=== PATIENT | male | born 1940 | race Caucasian/White ===

== ENCOUNTER 2017-03-06 11:15 | Outpatient (CLI) | payer MEDICARE, OTHER | END 2017-03-06 11:16 | disposition home or self-care (01) | LOC: ULT 11:15 | PROVIDERS: ATTEND Internal Medicine | DX: I26.99 Other pulmonary embolism without acute cor pulmonale (principal); I36.1 Nonrheumatic tricuspid (valve) insufficiency; I34.0 Nonrheumatic mitral (valve) insufficiency | CPT/HCPCS: 93306 ==

== ENCOUNTER 2017-03-22 09:42 | Outpatient (CLI) | payer MEDICARE, OTHER ==
[2017-03-22 11:58] LABS: #Basophils 0.1 thou/uL (0.0-0.2); #Eosinphils 0.2 thou/uL (0.0-0.7); #Lymphocytes 1.3 thou/uL (1.20-3.40); #Monocytes 0.7 thou/uL (0.11-0.59); #Neutrophils 5.9 thou/uL (1.40-6.50); %Basophils 0.8 % (0.0-1.0); %Lymphocytes 16.4 % (21.0-51.0); %Monocytes 8.2 % (0.0-10.0); Hematocrit 47.4 % (42.0-52.0); Mean Platelet Volume 8.3 fL (7.4-10.4); White Blood Cell (WBC) Count 8.1 thou/uL (4.8-10.8)
[2017-03-22 12:15] LABS: Hemoglobin A1c 5.2 % (4.0-6.0)
[2017-03-22 12:24] LABS: Anion Gap 10 mmol/L (10-20); BUN (Urea Nitrogen) 14 mg/dL (8.4-25.7); Calc. Creatinine Clearance 0 mL/min (70-130); Calcium 9.3 mg/dL (7.8-10.44); Carbon Dioxide 27 mmol/L (23-31); Chloride 107 mmol/L (98-107); Estimated GFR-MDRD 71
== END 2017-03-22 09:43 | disposition home or self-care (01) ==
LOC: LABBT 09:42
PROVIDERS: ATTEND Surgery
DX: Z01.812 Encounter for preprocedural laboratory examination (principal); K63.5 Polyp of colon
CPT/HCPCS: 80048; 83036; 85025

== ENCOUNTER 2017-03-22 10:30 | Inpatient (IN) | payer MEDICARE, OTHER ==
[2017-03-28] MEDS ORDERED: Fentanyl 100 MCG/2 ML VIAL ONE ×4 (08:43→14:22)
[2017-03-28] MEDS ORDERED: Midazolam HCl 2 mg/2 ml Vial ONE (08:43)
[2017-03-28] MEDS ORDERED: Dexamethasone 4 mg/ml Vial ONE (08:44)
[2017-03-28] MEDS ORDERED: cefOXitin Sodium 2 GM, Syringe 1 ML in Sterile Water 10 ML SLOW IVP SCH (08:45)
[2017-03-28] MEDS ORDERED: ceFOXitin 1 GM VIAL ONE (11:53)
[2017-03-28] MEDS ORDERED: Promethazine HCl 25 MG/ML VIAL IM PRN ×2 (14:12→15:58)
[2017-03-28] MEDS ORDERED: Ondansetron HCl/PF 4 MG/2 ML Vial IVP PRN ×2 (14:12→15:58)
[2017-03-28] MEDS ORDERED: Meperidine HCl/PF 25 MG/ML VIAL SLOW IVP PRN (14:12)
[2017-03-28] MEDS ORDERED: Promethazine HCl 25 MG/ML VIAL SLOW IVP PRN (14:12)
[2017-03-28] MEDS ORDERED: Ketorolac Tromethamine 30 MG/ML VIAL IVP PRN (14:12)
[2017-03-28] MEDS ORDERED: Fentanyl 100 MCG/2 ML VIAL SLOW IVP PRN (15:58)
[2017-03-28] MEDS ORDERED: hydrALAZINE 20 MG/ML VIAL SLOW IVP PRN (15:58)
[2017-03-28] MEDS ORDERED: Bupivacaine HCl 0.5%/Epinephrine 1:200,000/PF 30 ml Vial ONE (16:20)
[2017-03-28] MEDS ORDERED: Bupivacaine PF 0.5% 30 ML VIAL ONE (16:20)
[2017-03-28] MEDS: Sodium Chloride 0.9% 1,000 ML IV SCH ×2 (16:32→21:36)
[2017-03-28] MEDS: Fentanyl 100 MCG/2 ML VIAL SLOW IVP PRN (16:34)
[2017-03-28] MEDS ORDERED: Propofol 200 MG/20 ML VIAL ONE (17:10)
[2017-03-28] MEDS ORDERED: Succinylcholine Chloride 20 MG/ML 10 ml SYRINGE FS ONE (17:10)
[2017-03-28] MEDS ORDERED: ePHEDrine/0.9% NaCl/PF SYRINGE 50 mg/10 ml ONE (17:10)
[2017-03-28] MEDS ORDERED: Ondansetron HCl/PF 4 MG/2 ML Vial ONE (17:10)
[2017-03-28] MEDS ORDERED: Metoclopramide HCl 10 MG/2 ML VIAL ONE (17:10)
[2017-03-28] MEDS ORDERED: Glycopyrrolate 0.2 MG/ML 5 ML SYRINGE ONE (17:10)
[2017-03-28] MEDS ORDERED: Lidocaine 1% PF 5 ML VIAL ONE (17:10)
[2017-03-28] MEDS ORDERED: diphenhydrAMINE 50 MG/ML VIAL ONE (17:10)
[2017-03-28] MEDS: Acetaminophen 1,000 MG in Premix Bag 1 BAG IVPB SCH (17:40)
[2017-03-28] MEDS: cefOXitin Sodium 2 GM, Syringe 1 ML in Sterile Water 10 ML SLOW IVP SCH (18:31)
[2017-03-28] MEDS: Famotidine/PF 20 mg/2ml Vial SLOW IVP SCH (21:37)
[2017-03-28] MEDS: Enoxaparin Sodium 40 MG/0.4 ML SYRINGE SC SCH (21:37)
[2017-03-28] MEDS: Famotidine 20 MG TAB PO SCH (21:37)
--- NOTE | 2017-03-28 23:48 | OP ---
DATE OF PROCEDURE: 03/28/2017 PREOPERATIVE DIAGNOSES: 1. Sigmoid mass. 2. Cecal mass. POSTOPERATIVE DIAGNOSES: 1. Sigmoid mass. 2. Cecal mass. PROCEDURE: 1. Laparoscopic left colectomy with low pelvic anastomosis with diverting loop ileostomy. 2. Laparoscopic mobilization of splenic flexure. 3. Laparoscopic ileocecectomy. SURGEON: Sergei Mendez M.D. ANESTHESIA: General. ESTIMATED BLOOD LOSS: 50 mL. COMPLICATIONS: None. FINDINGS: Both colon specimens opened to reveal the large polyps to be in the specimen. INDICATION: The patient is a 76-year-old male who presents with large unresectable by colonoscopy po lyps in the sigmoid and cecum, both greater than [address] scan showed no obvious evidence of malignancy. He underwent cardiac clearance. He is on Xarelto for history of PE. He underwent [facility] anical and antibiotic bowel prep. TECHNIQUE: The patient underwent tap blocks in preop holding. After he was taken to the operating r oom and laid supine on the operating room table. After general anesthetic was obtained, a Sultana was placed. He was placed in lithotomy position. His abdomen was shaved, prepped and draped in a steril e fashion. Left subcostal 5-mm Optiview trocar was placed in the usual fashion without injury and hi gh-flow pneumoperitoneum was obtained. Right lower quadrant 12-mm, port supraumbilical 5 mm port, an d suprapubic 5 mm port were placed under direct visualization. A 5 mm port was placed in the left lo wer quadrant as well. The patient was placed in Trendelenburg position. His small bowel was pulled out of the pelvis into the upper abdomen. His sigmoid colon was lifted up. The peritoneum was taken down in the medial to lateral fashion. The peritoneum was incised. The left ureter was found and e xcluded from the dissection. The base of the BISHNU was taken using a white load on the stapling device . Dissection was then taken down into the pelvis and a mesorectal plane to the area of the rectosigm oid junction and just past. The upper rectum was mobilized. All lateral attachments were taken down . Laparoscopic stapler was fired across the upper rectum. This unhooked the colon, down below the c olon, then flipped up, and the splenic flexure mobilization was performed in the usual fashion and th e greater omentum was taken off of the splenic flexure of colon. The cecum was mobilized along the white line of Toldt using the cautery on the medial side that the p eritoneum was incised. The ileocolic artery was taken using LigaSure. Laparoscopic stapler was fire d across the terminal ileum. The left colon was then mobilized using cautery. The duodenum was foun d and excluded from the dissection and left down. Dissection was performed all the way past the hepa tic flexure of colon. A 4 cm incision was made above the umbilicus, midline incision was made in the fascia and the Darian wound retractor was placed. MICHELLE-75 stapler was fired across the proximal zamora sverse colon. The specimen was opened on the back table to reveal the large polyp to be in the cecum . The small bowel and transverse colon were able to be brought together in an antimesenteric fashion and an antimesenteric anastomosis was performed using MICHELLE-75 stapler, the common enterotomy was clos ed using a TA-60. The staple line was oversewn and a crotch stitch was placed using silk suture. Th e anastomosis was placed back down into the abdomen. Next, the left colon was able to be brought up through the same incision. Location was found for placing the anvil proximally, colotomy was made. The 31 EEA anvil was passed proximally, stapler was fired just distal to this. This colon specimen w as opened to reveal the larger and left sigmoid colon polyp to be in the specimen. The sharp pin on the anvil was brought out on the antimesenteric surface of the colon just above the staple line. The anvil and the colon was placed back in the abdomen. The Darian wound retractor was twisted and held up using a Amberly clamp. Insufflation was reobtained. The patient was replaced in Trendelenburg pos ition. The base of the EEA was brought up through the rectum and brought out on the antimesenteric s urface of the rectum anteriorly below. The anvil was connected from above after the sharp pin was br ought out and the stapler was tightened down and fired within the green zone and held for 30 seconds. The stapler was removed and the distal donut was sent as the final distal margin. There was no ble eding in the abdomen. Ellipse of skin was taken out in the right lower quadrant and a muscle splitti ng incision was performed. Ashley was used to grasp the small bowel just proximal to the right colo n anastomosis and brought it out through this incision. GraNee needle was used to close the fascial defect in the right lower quadrant. Pneumoinsufflation was let down. All ports were removed under d irect visualization. Midline fascia was closed using #1 PDS from the top and the bottom and tied in the middle. The subcutaneous tissues were irrigated using Pulsavac a liter of saline. This incision was closed using 3-0 Vicryl, 4-0 Monocryl, and Dermabond. All the other laparoscopic port sites wer e closed using 4-0 Monocryl and Dermabond. The ileostomy was then matured in the typical loop fashio n using 3-0 Vicryl. An ostomy device was placed. The patient was en route to recovery in stable con dition. All instrument counts, needle counts, and lap counts were correct.
[2017-03-29] MEDS: Acetaminophen 1,000 MG in Premix Bag 1 BAG IVPB SCH ×3 (00:18→11:40)
[2017-03-29] MEDS: cefOXitin Sodium 2 GM, Syringe 1 ML in Sterile Water 10 ML SLOW IVP SCH (01:56)
[2017-03-29] MEDS: Fentanyl 100 MCG/2 ML VIAL SLOW IVP PRN (01:58)
[2017-03-29 05:42] LABS: #Lymphocytes 0.8 thou/uL (1.20-3.40); #Monocytes 1.2 thou/uL (0.11-0.59); #Neutrophils 8.9 thou/uL (1.40-6.50); %Eosinophils 0.1 % (0.0-10.0); %Lymphocytes 7.4 % (21.0-51.0); %Monocytes 10.7 % (0.0-10.0); Hematocrit 40.9 % (42.0-52.0); Mean Platelet Volume 8.4 fL (7.4-10.4); Red Blood Cell (RBC) Count 4.57 mill/uL (4.70-6.10); White Blood Cell (WBC) Count 10.9 thou/uL (4.8-10.8)
[2017-03-29 06:09] LABS: Anion Gap 11 mmol/L (10-20); BUN (Urea Nitrogen) 11 mg/dL (8.4-25.7); Calc. Creatinine Clearance 0 mL/min (70-130); Calcium 8.2 mg/dL (7.8-10.44); Carbon Dioxide 22 mmol/L (23-31); Chloride 108 mmol/L (98-107); Estimated GFR-MDRD 68
[2017-03-29] MEDS ORDERED: Atenolol 25 MG TAB PO SCH (09:00)
[2017-03-29] MEDS: Famotidine/PF 20 mg/2ml Vial SLOW IVP SCH ×2 (09:48→23:26)
[2017-03-29] MEDS: Famotidine 20 MG TAB PO SCH ×2 (10:16→21:13)
[2017-03-29] MEDS ORDERED: HYDROcodone/Acetaminophen 10/325 mg Tablet PO PRN (10:41)
--- NOTE | 2017-03-29 13:31 | PRG ---
DATE OF SERVICE: 03/29/2017 Postop day #1 sigmoid colectomy and cecectomy laparoscopic with diverting ileostomy. The patient fee ls good today. He is tolerating a clear liquid diet. He has been ambulatory. He would like to have his Sultana out. PHYSICAL EXAMINATION: VITAL SIGNS: He is afebrile. His vital signs are stable. ABDOMEN: Soft. He does have bowel sounds. There is already air and stool in his ileostomy bag. ASSESSMENT: Postop day #1, sigmoid colectomy and diverting ileostomy. PLAN: Continue to mobilize. Advance to full liquids. Have ostomy teaching. I sent his prescripti ons over to his outpatient pharmacy which is [facility] in [facility]. Lomotil p.r.n. loose stools in the ba g, Marshall 1-2 every 6h. p.r.n. pain, as well as Zofran 4 mg ODT p.r.n. nausea. Dr. Lance will see h im for me this weekend, likely discharge on Saturday.
[2017-03-29] MEDS: Enoxaparin Sodium 40 MG/0.4 ML SYRINGE SC SCH (21:14)
[2017-03-30 08:35] VITALS: TEMP 98.4
[2017-03-30] MEDS ORDERED: Atenolol 25 MG TAB PO SCH (09:00)
[2017-03-30] MEDS: Famotidine 20 MG TAB PO SCH (09:47)
[2017-03-30] MEDS: Famotidine/PF 20 mg/2ml Vial SLOW IVP SCH (09:47)
[2017-03-30 12:22] VITALS: BP 122/81
== END 2017-03-30 13:00 | disposition home or self-care (01) | DRG 331 ==
LOC: SURG A 03-28 07:38 → SURG B 03-28 15:21
PROVIDERS: ADMIT Surgery; ATTEND Surgery
PROC: 0DBH4ZZ Excision of Cecum, Percutaneous Endoscopic Approach (ICD-10-PCS; principal; 2017-03-28)
PROC: 0D1B4Z4 Bypass Ileum to Cutaneous, Percutaneous Endoscopic Approach (ICD-10-PCS; 2017-03-28)
PROC: 0DBN4ZZ Excision of Sigmoid Colon, Percutaneous Endoscopic Approach (ICD-10-PCS; 2017-03-28)
PROC: 3E0T3BZ Introduction of Anesthetic Agent into Peripheral Nerves and Plexi, Percutaneous Approach (ICD-10-PCS; 2017-03-28)
DX: K63.5 Polyp of colon (principal); I10 Essential (primary) hypertension; Z86.711 Personal history of pulmonary embolism; Z79.01 Long term (current) use of anticoagulants; R25.1 Tremor, unspecified; R41.3 Other amnesia
CPT/HCPCS: 36415; 36416; 80048; 85025; 88307; 88309; A4216; J0131; J0670; J0694; J1100; J1200; J1650; J2001; J2250; J2405; J2704; J2765; J3010; S0020; S0028

== ENCOUNTER 2017-05-16 07:14 | Outpatient (CLI) | payer MEDICARE ==
--- NOTE | 2017-05-16 10:08 | RAD ---
BARIUM ENEMA: Date: 05/16/17 HISTORY: Evaluate anastomosis for stenosis and leak. Patient has a diverting ileostomy. COMPARISON: None. EXPOSURE: 2.1 minutes. 1264 mGy*cm^2. FINDINGS: Initial restaurant hospitality manager abdomen radiograph demonstrates a suture chain in the midline of the pelvis, as well as in the right lower quadrant. Right lower quadrant ileostomy is identified. Patient was administered Gastrografin in a retrograde fashion. There is no significant delay in passa ge of contrast at the level of the distal anastomosis. No leak or extravasation. No significant steno sis. Contrast opacifies the descending colon, transverse colon, and part of the right hemicolon. No o bvious abnormalities. IMPRESSION: No significant stenosis, leak, or extravasation at the distal anastomosis. Results of study discussed with Dr. Mendez on 05/16/17 at 0848 hours. CODE CR. POS: [facility]
== END 2017-05-16 07:15 | disposition home or self-care (01) ==
LOC: RAD 07:14
PROVIDERS: ATTEND Surgery
DX: C18.9 Malignant neoplasm of colon, unspecified (principal)
CPT/HCPCS: 74270

== ENCOUNTER 2017-05-27 09:50 | Outpatient (CLI) | payer MEDICARE, OTHER ==
[2017-05-27 11:30] LABS: Hemoglobin 15.7 g/dL (14.0-18.0); Mean Corpuscular HGB CONC 33.1 g/dL (32.0-36.0); Mean Corpuscular Hemoglobin 29.3 pg (27.0-31.0); Mean Corpuscular Volume 88.3 fl (80.0-94.0); Mean Platelet Volume 7.9 fL (7.4-10.4); Platelet Count 279 thou/uL (130-400); Red Blood Cell (RBC) Count 5.37 mill/uL (4.70-6.10); White Blood Cell (WBC) Count 8.9 thou/uL (4.8-10.8)
[2017-05-27 11:52] LABS: Anion Gap 13 mmol/L (10-20); BUN (Urea Nitrogen) 18 mg/dL (8.4-25.7); Calc. Creatinine Clearance 0 mL/min (70-130); Carbon Dioxide 20 mmol/L (23-31); Chloride 106 mmol/L (98-107); Estimated GFR-MDRD 55; Sodium 135 mmol/L (136-145)
[2017-05-27 11:53] LABS: Calcium 9.5 mg/dL (7.8-10.44); Glucose 85 mg/dL (83-110)
== END 2017-05-27 09:51 | disposition home or self-care (01) ==
LOC: LABBT 09:50
PROVIDERS: ATTEND Surgery
DX: Z01.812 Encounter for preprocedural laboratory examination (principal); C18.9 Malignant neoplasm of colon, unspecified; K94.13 Enterostomy malfunction
CPT/HCPCS: 80048; 85027

== ENCOUNTER 2017-05-27 10:15 | Inpatient (IN) | payer MEDICARE ==
[2017-05-27 10:26] VITALS: BMI 27.8
[2017-05-30] MEDS ORDERED: Fentanyl 100 MCG/2 ML VIAL ONE (06:29)
[2017-05-30] MEDS ORDERED: HYDROmorphone 0.5 MG/0.5 ML SYRINGE ONE (06:29)
[2017-05-30] MEDS ORDERED: cefOXitin 2 GM, Syringe 1 ML in Sterile Water 10 ML SLOW IVP SCH (06:30)
[2017-05-30] MEDS ORDERED: Bupivacaine PF 0.5% 30 ML VIAL ONE (08:20)
--- NOTE | 2017-05-30 09:30 | OP ---
DATE OF PROCEDURE: 05/30/2017 PREOPERATIVE DIAGNOSES: Colon cancer, attention to ileostomy. POSTOPERATIVE DIAGNOSES: Colon cancer, attention to ileostomy. PROCEDURE: Ileostomy reversal with small bowel resection and anastomosis. SURGEON: Sergei Mendez M.D. ANESTHESIA: General. ESTIMATED BLOOD LOSS: Minimal. COMPLICATIONS: None. SPECIMEN: Small bowel. TECHNIQUE: The patient was taken to the operating room and placed supine on the table. After genera l anesthetic was obtained, Sultana was placed. Abdomen was shaved, prepped, and draped in a sterile fa shion. The ileostomy mucosa was ellipsed out. Cautery dissected down into the subcutaneous fat. Me ticulous dissection was used to dissect the ileostomy segment down towards the fascial edge. The abd ominal cavity was easily entered on the edge of the ileostomy segment, posterior abdominal wall adhes ions were taken down. There are really more adhesions in the abdominal cavity. The small bowel loop was able to be brought up in the wound under no tension. A MICHELLE-75 stapler was fired across the smal l bowel transversely proximal and distal to the skin and mucosa. There was a nodule seen in the more proximal small bowel mesentery just proximal to the proximal staple line and so the decision was mad e to remove small amount more of the small bowel proximally. An additional load was then fired proxi mal to this and the mesentery was taken using Amberly clamps and silk ties. The two ends of small inte karie of brought together in an antimesenteric fashion. Enterotomy was made on the antimesenteric en d of each. MICHELLE-75 stapler was used to form the anastomosis. The common enterotomy was closed in two layers using full thickness 3-0 Vicryl and then 3-0 silk sutures. The mesenteric defect was closed using 3-0 silk. Crotch stitch was placed using 3-0 silk. The anastomosis was placed back into the a bdominal cavity. The wound was irrigated. The posterior fascia was closed using PDS. The anterior fascia was closed using PDS. Skin was irrigated using saline. Skin closed using a pursestring of Pr olene suture. A Canterbury was left in middle of the wound. Sterile dressings are placed. The patient was en route to recovery in stable condition. All instrument counts, needle counts, and lap counts were correct.
[2017-05-30] MEDS ORDERED: traMADol HCl 50 MG TAB PO PRN ×2 (10:29)
[2017-05-30] MEDS ORDERED: Ondansetron HCl/PF 4 MG/2 ML Vial IVP PRN (10:29)
[2017-05-30] MEDS ORDERED: Fentanyl 100 MCG/2 ML VIAL SLOW IVP PRN ×2 (10:29)
[2017-05-30] MEDS ORDERED: Promethazine HCl 25 MG/ML VIAL IM PRN (10:29)
[2017-05-30] MEDS ORDERED: Ketorolac Tromethamine 30 MG/ML VIAL IVP PRN (10:29)
[2017-05-30] MEDS ORDERED: hydrALAZINE 20 MG/ML VIAL SLOW IVP PRN (10:29)
[2017-05-30] MEDS ORDERED: Famotidine 20 MG TAB PO SCH (11:15)
[2017-05-30] MEDS ORDERED: Famotidine/PF 20 mg/2ml Vial SLOW IVP SCH (11:15)
[2017-05-30] MEDS: Acetaminophen 1,000 MG in Premix Bag 1 BAG IVPB SCH ×2 (11:24→16:59)
[2017-05-30] MEDS: Sodium Chloride 0.9% 1,000 ML IV SCH (11:26)
[2017-05-30] MEDS ORDERED: Glycopyrrolate 0.2 MG/ML 5 ML SYRINGE ONE (12:13)
[2017-05-30] MEDS ORDERED: PROPOFOL 200 MG/20 ML VIAL ONE (12:13)
[2017-05-30] MEDS ORDERED: Dexamethasone 20 MG/5 ML VIAL ONE (12:13)
[2017-05-30] MEDS ORDERED: Ketorolac Tromethamine 30 MG/ML VIAL ONE (12:13)
[2017-05-30] MEDS ORDERED: Succinylcholine Chloride 20 MG/ML 10 ml SYRINGE FS ONE (12:13)
[2017-05-30] MEDS ORDERED: Lidocaine 1% PF 5 ML VIAL ONE (12:13)
[2017-05-30] MEDS ORDERED: Ondansetron HCl/PF 4 MG/2 ML Vial ONE (12:13)
[2017-05-30] MEDS ORDERED: ePHEDrine/0.9% NaCl/PF SYRINGE 50 mg/10 ml ONE (12:13)
[2017-05-30] MEDS ORDERED: cefOXitin 2 GM in Sodium Chloride 0.9% 100 ML IVPB SCH (14:00)
[2017-05-30] MEDS: cefOXitin 2 GM, Syringe 1 ML in Sterile Water 10 ML SLOW IVP SCH (17:16)
[2017-05-30] MEDS: Famotidine 20 MG TAB PO SCH (20:47)
[2017-05-30] MEDS: Enoxaparin Sodium 40 MG/0.4 ML SYRINGE SC SCH (20:47)
[2017-05-30] MEDS: Famotidine/PF 20 mg/2ml Vial SLOW IVP SCH (22:10)
[2017-05-31] MEDS: cefOXitin 2 GM, Syringe 1 ML in Sterile Water 10 ML SLOW IVP SCH (00:36)
[2017-05-31] MEDS: Acetaminophen 1,000 MG in Premix Bag 1 BAG IVPB SCH ×2 (00:36→06:00)
[2017-05-31] MEDS: Sodium Chloride 0.9% 1,000 ML IV SCH (04:57)
[2017-05-31 05:02] LABS: #Lymphocytes 1.8 thou/uL (1.20-3.40); #Monocytes 1.5 thou/uL (0.11-0.59); #Neutrophils 10.9 thou/uL (1.40-6.50); %Basophils 0.3 % (0.0-1.0); %Eosinophils 0.2 % (0.0-10.0); %Lymphocytes 12.3 % (21.0-51.0); %Monocytes 10.2 % (0.0-10.0); Hemoglobin 13.4 g/dL (14.0-18.0); Mean Corpuscular HGB CONC 33.8 g/dL (32.0-36.0); Mean Corpuscular Hemoglobin 29.6 pg (27.0-31.0); Mean Corpuscular Volume 87.7 fl (80.0-94.0); Mean Platelet Volume 7.6 fL (7.4-10.4); Platelet Count 271 thou/uL (130-400); Red Blood Cell (RBC) Count 4.51 mill/uL (4.70-6.10); White Blood Cell (WBC) Count 14.2 thou/uL (4.8-10.8)
[2017-05-31 05:11] LABS: Anion Gap 11 mmol/L (10-20); BUN (Urea Nitrogen) 20 mg/dL (8.4-25.7); Calc. Creatinine Clearance 57 mL/min (70-130); Calcium 8.9 mg/dL (7.8-10.44); Carbon Dioxide 19 mmol/L (23-31); Chloride 108 mmol/L (98-107); Estimated GFR-MDRD 51; Glucose 110 mg/dL (83-110); Potassium 4.1 mmol/L (3.5-5.1); Sodium 134 mmol/L (136-145)
[2017-05-31] MEDS ORDERED: Ziprasidone 20 MG VIAL ONE (05:16)
[2017-05-31] MEDS ORDERED: Ziprasidone 20 MG VIAL IM PRN (06:08)
[2017-05-31] MEDS ORDERED: Sterile Water 10 ML VIAL FS PRN (06:08)
[2017-05-31] MEDS: Famotidine 20 MG TAB PO SCH ×2 (09:24→21:40)
[2017-05-31] MEDS: Atenolol 25 MG TAB PO SCH (09:24)
[2017-05-31] MEDS: Famotidine/PF 20 mg/2ml Vial SLOW IVP SCH ×2 (09:25→21:41)
[2017-05-31] MEDS ORDERED: HYDROcodone/Acetaminophen 10/325 mg Tablet PO PRN ×2 (13:40)
--- NOTE | 2017-05-31 13:43 | PDOC.GSPN ---
Surgery Progress Note: Subj - Subjective Patient reports: tolerating liquids well Narrative: Very confused overnight Surgery Progress Note: Obj - Vital signs Vital signs: Vital Signs - Most Recent Temp Pulse Resp BP Pulse Ox 97.8 F 85 16 117/76 98 05/31/17 09:20 05/31/17 09:24 05/31/17 09:20 05/31/17 09:24 05/31/17 04:00 - Physical Exam General: no distress Respiratory: clear to auscultation Abdomen: soft, nondistended Wound: healing well Surgery Progress Note: Results - Labs Result Diagrams: 05/31/17 04:45 05/31/17 04:45 Lab results: Laboratory Results - last 24 hr 05/31/17 05/31/17 04:45 04:45 WBC 14.2 H RBC 4.51 L Hgb 13.4 L Hct 39.5 L MCV 87.7 MCH 29.6 MCHC 33.8 RDW 13.0 Plt Count 271 MPV 7.6 Neutrophils % 77.0 H Lymphocytes % 12.3 L Monocytes % 10.2 H Eosinophils % 0.2 Basophils % 0.3 Neutrophils # 10.9 H Lymphocytes # 1.8 Monocytes # 1.5 H Eosinophils # 0.0 Basophils # 0.0 Sodium 134 L Potassium 4.1 Chloride 108 H Carbon Dioxide 19 L Anion Gap 11 BUN 20 Creatinine 1.37 H Estimated GFR (MDRD) 51 Glucose 110 Calcium 8.9 Surgery Progress Note: A/P - Problem (1) Colon cancer Current Visit: Yes Code(s): C18.9 - MALIGNANT NEOPLASM OF COLON, UNSPECIFIED Status: Acute (2) Ileostomy dysfunction Current Visit: Yes Code(s): K94.13 - ENTEROSTOMY MALFUNCTION Status: Acute Assessment and Plan: POD 1 for ileostomy reversal. Discussed with family his confusion is due to not being in his normal environment. Use Geodon prn severe agitation. Full liquids today. Home tomorrow as long as no more nausea. He will do better once back at home.
[2017-05-31] MEDS: Enoxaparin Sodium 40 MG/0.4 ML SYRINGE SC SCH (21:52)
[2017-06-01 08:03] VITALS: BP 102/88; TEMP 98.5
[2017-06-01] MEDS: Atenolol 25 MG TAB PO SCH (08:23)
[2017-06-01] MEDS: Famotidine/PF 20 mg/2ml Vial SLOW IVP SCH (12:02)
[2017-06-01] MEDS: Famotidine 20 MG TAB PO SCH (12:02)
--- NOTE | 2017-06-03 14:22 | DIS ---
DATE OF ADMISSION: 05/30/2017 DATE OF DISCHARGE: 06/01/2017 ADMITTING DIAGNOSES: 1. History of left colon cancer, attention to ileostomy. 2. Dementia. DISCHARGE DIAGNOSES: 1. History of left colon cancer, attention to ileostomy. 2. Dementia. PROCEDURES: Ileostomy takedown by Dr. Mendez without complication. CONDITION AT DISCHARGE: Improved. STAFF: Dr. Sergei Mendez. HOSPITAL COURSE: The patient admitted to the hospital on a surgical floor postop on a clear liquid d iet. On postop day #1, advanced to full liquids. On postop day #2, the patient tolerated the full l iquid diet and was discharged to home. He will follow up with me in the office 1 week after discharg e.
== END 2017-06-01 11:55 | disposition home or self-care (01) | DRG 330 ==
LOC: SURG A 05-30 05:57 → SJJU 05-30 10:01 → EDSTATUS 05-30 10:15
PROVIDERS: ADMIT Surgery; ATTEND Surgery
PROC: 0DBB0ZZ Excision of Ileum, Open Approach (ICD-10-PCS; principal; 2017-05-30)
PROC: 0DB80ZZ Excision of Small Intestine, Open Approach (ICD-10-PCS; 2017-05-30)
DX: K94.13 Enterostomy malfunction (principal); C18.9 Malignant neoplasm of colon, unspecified; I48.91 Unspecified atrial fibrillation; C18.7 Malignant neoplasm of sigmoid colon; H54.40 Blindness, one eye, unspecified eye; Z88.2 Allergy status to sulfonamides; I10 Essential (primary) hypertension; Z86.711 Personal history of pulmonary embolism
CPT/HCPCS: 36415; 80048; 85025; 85027; 88307; A4216; J0131; J0694; J1100; J1170; J1650; J1885; J2001; J2405; J2704; J3010; J3486; S0020; S0028

== ENCOUNTER 2018-08-04 17:17 | Emergency (ER) | payer MEDICARE ==
--- NOTE | 2018-08-04 19:34 | CT ---
CT BRAIN PERFORMED WITHOUT CONTRAST ENHANCEMENT: History: Fell, hitting head. Patient is on Xarelto, history of Alzheimer's. Comparison: 11-19-16 FINDINGS: There is generalized ventricular and sulcal prominence. There are no signs of intracerebral hemorrhag e or extraaxial fluid collections. The mastoids air cells and visualized sinuses appear clear. IMPRESSION: No acute intracranial abnormalities. POS: [facility]
--- NOTE | 2018-08-04 19:48 | CT ---
CT CERVICAL SPINE PERFORMED WITHOUT CONTRAST ENHANCEMENT: History: Neck pain status post fall. FINDINGS: The vertebral bodies are normal in height. Severe disc narrowing is seen at C4-5, C5-6, C6-7 and C7-T 1. There is an anterolisthesis of approximately 3 mm at C7 on T1 with associated degenerative facet c hanges. There is some moderate right sided foraminal narrowing at C3-4 and fairly pronounced bilatera l foraminal narrowing at C4-5 and C5-6 with left sided foraminal narrowing at C6-7. There is no CT ev idence for fracture. IMPRESSION: Marked arthritic change of the spine. No CT evidence of fracture. POS: [facility]
== END 2018-08-04 19:45 | disposition home or self-care (01) ==
LOC: ERS 17:17
DX: S09.90XA Unspecified injury of head, initial encounter (principal); S16.1XXA Strain of muscle, fascia and tendon at neck level, initial encounter; F03.90 Unspecified dementia, unspecified severity, without behavioral disturbance, psychotic disturbance, mood disturbance, and anxiety; I48.91 Unspecified atrial fibrillation; E78.5 Hyperlipidemia, unspecified; I10 Essential (primary) hypertension; Z87.891 Personal history of nicotine dependence; W17.89XA Other fall from one level to another, initial encounter
CPT/HCPCS: 70450; 72125

== ENCOUNTER 2018-08-05 20:35 | Emergency (ER) | payer MEDICARE ==
[2018-08-05] MEDS ORDERED: Ziprasidone 20 MG VIAL ONE (21:36)
--- NOTE | 2018-08-05 22:39 | CT ---
EXAM: Brain CT scan Without contrast: HISTORY: Injury from a fall COMPARISON: 08/04/2018 FINDINGS: Atrophy and chronic white matter ischemic change. No focal mass or midline shift. No intra or extra-axial hemorrhage. IMPRESSION: No mass or bleed or other significant acute process. Stable from yesterday's study.
== END 2018-08-05 23:39 ==
LOC: ERS 20:35
DX: S09.90XA Unspecified injury of head, initial encounter (principal); G30.9 Alzheimer's disease, unspecified; F02.80 Dementia in other diseases classified elsewhere, unspecified severity, without behavioral disturbance, psychotic disturbance, mood disturbance, and anxiety; I48.91 Unspecified atrial fibrillation; I10 Essential (primary) hypertension; Z87.891 Personal history of nicotine dependence; Z79.899 Other long term (current) drug therapy; Z79.01 Long term (current) use of anticoagulants; Z79.82 Long term (current) use of aspirin; W01.198A Fall on same level from slipping, tripping and stumbling with subsequent striking against other object, initial encounter
CPT/HCPCS: 70450; 96372; J3486